=== PATIENT | female | born 1955 | race Two or more races ===

== ENCOUNTER 2019-02-03 08:00 | Inpatient (IN) | payer OTHER ==
[~2019-02-03] VITALS: Ht 157.5 cm; Wt 74.8 kg
[2019-02-09] MEDS ORDERED: LOSARTAN-HCTZ1 EACH PO (10:28)
[2019-02-09] MEDS ORDERED: VOLTAREN PO (10:29)
[2019-02-10] MEDS ORDERED: VOLTAREN-XR100 MG PO (10:01)
== END 2019-02-13 14:26 | disposition home or self-care (01) | DRG 470 ==
LOC: O/R 02-10 07:00 → SURH 02-10 07:00
PROVIDERS: ADMIT Orthopaedic Surgery
PROC: 0SRD0J9 Replacement of Left Knee Joint with Synthetic Substitute, Cemented, Open Approach (ICD-10-PCS; principal; 2019-02-10 10:15)
DX: M17.12 Unilateral primary osteoarthritis, left knee (principal); D62 Acute posthemorrhagic anemia; I10 Essential (primary) hypertension; E66.8 Other obesity; Z72.0 Tobacco use; Z68.30 Body mass index [BMI] 30.0-30.9, adult

== ENCOUNTER 2020-04-06 11:56 | Inpatient (IN) | payer OTHER ==
[~2020-04-06] VITALS: Ht 157.5 cm; Wt 81.6 kg
[~2020-04-06 11:56] MED LIST: LOSARTAN-HCTZ1 EACH PO; VOLTAREN PO; VOLTAREN-XR100 MG PO
[2020-05-04] MEDS ORDERED: B COMPLEX1 EACH PO (07:55)
[2020-05-04] MEDS ORDERED: PROTONIX40 M1 PO (07:56)
[2020-05-11] MEDS ORDERED: LOSARTAN-HCTZ1 EAC1 PO (08:29)
[2020-05-11] MEDS ORDERED: IBUPROFEN IB200 MG PO (08:30)
== END 2020-05-12 18:45 | DRG 470 ==
LOC: O/R 05-10 06:00 → SURH 05-10 06:00
PROVIDERS: ADMIT Orthopaedic Surgery; ATTEND Orthopaedic Surgery
PROC: 0SRC0JZ Replacement of Right Knee Joint with Synthetic Substitute, Open Approach (ICD-10-PCS; principal; 2020-05-10 10:15)
DX: M17.11 Unilateral primary osteoarthritis, right knee (principal); D62 Acute posthemorrhagic anemia; I10 Essential (primary) hypertension; M17.12 Unilateral primary osteoarthritis, left knee; Z72.0 Tobacco use; Z20.828 Contact with and (suspected) exposure to other viral communicable diseases